=== PATIENT | female | born 1930 | race Caucasian/White ===

== ENCOUNTER 2016-06-16 11:56 | Emergency (ER) | payer MEDICARE ==
[~2016-06-16] VITALS: Ht 154.9 cm; Wt 84.4 kg
[~2016-06-16 11:56] MED LIST: AMIO200T2 PO; CHOL200027 PO; DILT120C2 PO; DILT300C2 PO; DOCU-27 PO; DOXY100C2 PO; DRON400T PO; EDOX60TA PO; FISH1CAP PO; LEVO100T5 PO; LEVO75TA5 PO; LOSA100T6 PO; METO100T11 PO; METO50TA10 PO; POTA20TA12 PO; SOTA80TA PO; TORS20TA2 PO; VIT1CAPS11 PO; WARF2TAB7 PO; WARF5TAB7 PO
--- NOTE | 2016-06-16 12:36 | ED.ADGEN ---
Adult General [facility] HPI Patient is a 85-year-old female presents emergency department complaining of right foot pain. This is been going on for the last 4 days. She reports that she has associated edema. Patient denies any trauma or injury to it. She recalls waking up and feeling pain on her instep. Patient normally takes a daily diuretic but due to the pain of walking on her foot she has not taken it. She reports that her swelling is increased. She denies any other symptom or complaint. Denies any recent illness, fever, chills, nausea, vomiting, chest pain, or dyspnea. Review of Systems Review of Systems Constitutional: Denies fever or chills [] Eyes: Denies change in visual acuity, redness, or eye pain [] HENT: Denies nasal congestion or sore throat [] Respiratory: Denies cough or shortness of breath [] Cardiovascular: No additional information not addressed in HPI [] GI: Denies abdominal pain, nausea, vomiting, bloody stools or diarrhea [] : Denies dysuria or hematuria [] Musculoskeletal: Denies back pain or joint pain [] Integument: Denies rash or skin lesions [] Neurologic: Denies headache, focal weakness or sensory changes [] Endocrine: Denies polyuria or polydipsia [] Allergies Allergies Allergies Coded Allergies Type Severity Reaction Last Updated Verified Penicillins Allergy Intermediate 01/27/16 Yes Sulfa (Sulfonamide Antibiotics) Allergy Intermediate 01/27/16 Yes ciprofloxacin Allergy Intermediate Unknown 01/27/16 Yes Physical Exam Physical Exam Constitutional: Well developed, well nourished, no acute distress, non-toxic appearance. [] HENT: Normocephalic, atraumatic, bilateral external ears normal, oropharynx moist, no oral exudates, nose normal. [] Eyes: PERRLA, EOMI, conjunctiva normal, no discharge. [] Neck: Normal range of motion, no tenderness, supple, no stridor. [] Cardiovascular:Heart rate regular rhythm, no murmur [] Lungs & Thorax: Bilateral breath sounds clear to auscultation [] Abdomen: Bowel sounds normal, soft, no tenderness, no masses, no pulsatile masses. [] Skin: Warm, dry, no erythema, no rash. [] Back: No tenderness, no CVA tenderness. [] Extremities: Mild diffuse tenderness palpation right instep, no cyanosis, no clubbing, ROM intact, bilateral 1+ lower extremity edema. [] Neurologic: Alert and oriented X 3, normal motor function, normal sensory function, no focal deficits noted. [] Psychologic: Affect normal, judgement normal, mood normal. [] Current Patient Data Vital Signs Vital Signs Date Time Temp Pulse Resp B/P Pulse Ox O2 Delivery O2 Flow Rate FiO2 06/16/16 12:05 98.7 97 97 Room Air Lab Results Laboratory Tests Test 06/16/16 13:08 White Blood Count 7.5x10^3/uL (4.0-11.0) Red Blood Count 4.15x10^6/uL (3.50-5.40) Hemoglobin 12.4g/dL (12.0-15.5) Hematocrit 37.6% (36.0-47.0) Mean Corpuscular Volume 91fL (79-100) Mean Corpuscular Hemoglobin 30pg (25-35) Mean Corpuscular Hemoglobin Concent 33g/dL (31-37) Red Cell Distribution Width 14.2% (11.5-14.5) Platelet Count 180x10^3/uL (140-400) Neutrophils (%) (Auto) 70% (31-73) Lymphocytes (%) (Auto) 16% (24-48) L Monocytes (%) (Auto) 13% (0-9) H Eosinophils (%) (Auto) 0% (0-3) Basophils (%) (Auto) 1% (0-3) Neutrophils # (Auto) 5.3x10^3uL (1.8-7.7) Lymphocytes # (Auto) 1.2x10^3/uL (1.0-4.8) Monocytes # (Auto) 1.0x10^3/uL (0.0-1.1) Eosinophils # (Auto) 0.0x10^3/uL (0.0-0.7) Basophils # (Auto) 0.1x10^3/uL (0.0-0.2) Sodium Level 140mmol/L (136-145) Potassium Level 3.3mmol/L (3.5-5.1) L Chloride Level 103mmol/L (98-107) Carbon Dioxide Level 27mmol/L (21-32) Anion Gap 10 (6-14) Blood Urea Nitrogen 11mg/dL (7-20) Creatinine 0.8mg/dL (0.6-1.0) Estimated GFR (Cockcroft-Gault) 68.0 Glucose Level 108mg/dL (70-99) H Calcium Level 8.9mg/dL (8.5-10.1) [id number]-Type Natriuretic Peptide 3602pg/mL (0-449) H EKG EKG [] Radiology/Procedures Radiology/Procedures Right foot radiographs History: Pain and swelling. Comparison: None. Findings: AP, lateral, and oblique views of the right foot. Osseous structures are demineralized. No acute fracture or dislocation is identified. Moderate first MTP degeneration is seen. Moderate plantar calcaneal and Achilles tendon insertional enthesophytes are present. Arterial calcifications are seen. There does appear to be soft tissue swelling of the posterior ankle including superficial to the Achilles tendon insertion. There is also evidence of mild forefoot and midfoot soft tissue swelling. Impression: 1. No acute osseous abnormality identified. 2. Degenerative changes. 3. Areas of soft tissue swelling is described above. DICTATED AND SIGNED BY: MELA BASS MD DATE: 06/16/16 1257 CC: JESSICA GOMEZ MD; DANIELA GROSSMAN MD ~[] Course & Med Decision Making Course & Med Decision Making Pertinent Labs and Imaging studies reviewed. (See chart for details) Overall, the patient looks very well here in emergency department. Her x-rays negative for any acute bony abnormality. Although, does show some swelling. She is labs overall are reassuring. A long discussion with the patient and her daughter. At this point to send her home with supportive care. She is given a use Tylenol as needed for pain. She can try elevation and ice on that for for the next couple of days. If she is not getting satisfactory improvement she will follow-up with her physician or return to the emergency department. [] Final Impression Final Impression Foot pain [] Problems: Dragon Disclaimer Dragon Disclaimer This electronic medical record was generated, in whole or in part, using a voice recognition dictation system. JESSICA GOMEZ MD Jun 16, 2016 12:36
--- NOTE | 2016-06-16 12:55 | RAD ---
Right foot radiographs History: Pain and swelling. Comparison: None. Findings: AP, lateral, and oblique views of the right foot. Osseous structures are demineralized. No acute fracture or dislocation is identified. Moderate first MTP degeneration is seen. Moderate plantar calcaneal and Achilles tendon insertional enthesophytes are present. Arterial calcifications are seen. There does appear to be soft tissue swelling of the posterior ankle including superficial to the Achilles tendon insertion. There is also evidence of mild forefoot and midfoot soft tissue swelling. Impression: 1. No acute osseous abnormality identified. 2. Degenerative changes. 3. Areas of soft tissue swelling is described above.
[2016-06-16 13:21] LABS: BASO # 0.1 x10^3/uL (0.0-0.2); BASO % 1 % (0-3); EOS % 0 % (0-3); HEMATOCRIT 37.6 % (36.0-47.0); HEMOGLOBIN 12.4 g/dL (12.0-15.5); LYMPH # 1.2 x10^3/uL (1.0-4.8); LYMPH % 16 % (24-48); MEAN CORPUSCULAR HEMOGLOBIN 30 pg (25-35); MEAN CORPUSCULAR HGB CONC 33 g/dL (31-37); MEAN CORPUSCULAR VOLUME 91 fL (79-100); MONO % 13 % (0-9); NEUT # 5.3 x10^3uL (1.8-7.7); NEUT % 70 % (31-73); PLATELET COUNT 180 x10^3/uL (140-400); RED BLOOD COUNT 4.15 x10^6/uL (3.50-5.40); RED CELL DISTRIBUTION WIDTH 14.2 % (11.5-14.5); WHITE BLOOD COUNT 7.5 x10^3/uL (4.0-11.0)
[2016-06-16 13:37] LABS: CALCIUM 8.9 mg/dL (8.5-10.1); CREATININE 0.8 mg/dL (0.6-1.0); POTASSIUM 3.3 mmol/L (3.5-5.1)
[2016-06-16 14:00] VITALS: BP 146/71
== END 2016-06-16 14:25 | disposition home or self-care (01) ==
LOC: ER 11:56
DX: M79.671 Pain in right foot (principal); R60.0 Localized edema; Z88.0 Allergy status to penicillin; Z88.2 Allergy status to sulfonamides; Z88.1 Allergy status to other antibiotic agents
CPT/HCPCS: 36415; 73630; 80048; 83880; 85027; 99285-25

== ENCOUNTER → 2016-08-11 | Outpatient (CLI) | payer MEDICARE ==
[~2016-08-11] MED LIST changes: +DOCU-109 PO; -DOCU-27 PO; -SOTA80TA PO; +SOTA80TA48 PO
[2016-08-11 10:43] LABS: ALBUMIN 3.6 g/dL (3.4-5.0); ALBUMIN/GLOBULIN RATIO 0.8 (1.0-1.7); CALCIUM 9.2 mg/dL (8.5-10.1); CREATININE 0.8 mg/dL (0.6-1.0); POTASSIUM 3.8 mmol/L (3.5-5.1); TOTAL BILIRUBIN 0.5 mg/dL (0.2-1.0)
[2016-08-11 10:44] LABS: BASO # 0.1 x10^3/uL (0.0-0.2); BASO % 1 % (0-3); EOS # 0.2 x10^3/uL (0.0-0.7); EOS % 3 % (0-3); HEMOGLOBIN 13.5 g/dL (12.0-15.5); LYMPH % 40 % (24-48); MEAN CORPUSCULAR HEMOGLOBIN 30 pg (25-35); MEAN CORPUSCULAR HGB CONC 34 g/dL (31-37); MEAN CORPUSCULAR VOLUME 89 fL (79-100); MONO # 0.5 x10^3/uL (0.0-1.1); MONO % 11 % (0-9); NEUT # 2.3 x10^3uL (1.8-7.7); NEUT % 45 % (31-73); PLATELET COUNT 232 x10^3/uL (140-400); RED BLOOD COUNT 4.52 x10^6/uL (3.50-5.40); RED CELL DISTRIBUTION WIDTH 14.4 % (11.5-14.5); WHITE BLOOD COUNT 5.1 x10^3/uL (4.0-11.0)
== END | disposition home or self-care (01) ==
LOC: LAB 09:51
PROVIDERS: ATTEND Nurse Practitioner Family
DX: I10 Essential (primary) hypertension (principal); I48.2 Chronic atrial fibrillation; E03.9 Hypothyroidism, unspecified; E78.00 Pure hypercholesterolemia, unspecified
CPT/HCPCS: 36415; 80053; 80061; 84439; 84443; 85027

== ENCOUNTER → 2017-05-26 | Outpatient (CLI) | payer MEDICARE ==
[~2017-05-26] MED LIST changes: +METO-247 PO; -METO100T11 PO; -METO50TA10 PO; +METO50TA29 PO; +WARF-31 PO; -WARF5TAB7 PO
[2017-05-26 12:21] LABS: ALBUMIN 3.6 g/dL (3.4-5.0); ALBUMIN/GLOBULIN RATIO 0.9 (1.0-1.7); CALCIUM 9.4 mg/dL (8.5-10.1); CREATININE 0.9 mg/dL (0.6-1.0); GFR 59.2; POTASSIUM 3.6 mmol/L (3.5-5.1); TOTAL BILIRUBIN 0.6 mg/dL (0.2-1.0); TOTAL PROTEIN 7.8 g/dL (6.4-8.2)
[2017-05-26 15:18] LABS: THYROID STIM HORMONE (TSH) 1.235 uIU/mL (0.358-3.740)
== END | disposition home or self-care (01) ==
LOC: LAB 10:49
PROVIDERS: ATTEND Nurse Practitioner
DX: E78.5 Hyperlipidemia, unspecified (principal); E03.9 Hypothyroidism, unspecified; I10 Essential (primary) hypertension
CPT/HCPCS: 36415; 80053; 80061; 84443

== ENCOUNTER 2018-12-09 12:51 | Emergency (ER) | payer MEDICARE ==
[~2018-12-09] VITALS: Ht 157.5 cm; Wt 81.6 kg
[~2018-12-09 12:51] MED LIST changes: -AMIO200T2 PO; +AMIO200T4 PO; +LOSA100T14 PO; -LOSA100T6 PO; +OCUVITE SOFTGE1 EACH PO; -VIT1CAPS11 PO; -WARF2TAB7 PO; +WARF2TAB96 PO
[2018-12-09 13:01] VITALS: BP 140/83
[2018-12-09] MEDS ORDERED: IV NORMAL SALINE 1,000ML 1,000 ML IV ONE (13:30)
--- NOTE | 2018-12-09 13:48 | PHYS DOC ---
Past History Past Medical History: A-Fib, Hypertension, Hypothyroid Past Surgical History: Cholecystectomy, Hysterectomy Alcohol Use: None Drug Use: None Adult General Chief Complaint Chief Complaint: ABDOMINAL PAIN HPI HPI 88-year-old female presents with lower abdominal pain and generalized weakness. The patient was having some lower abdominal pain yesterday and went to her PCP. She was placed on MiraLAX. She has taken 2 doses so far, but no bowel movement. She has not had a bowel movement in 3 or 4 days. Lower abdominal pain at this time, but is feeling weak and tired. This is more than her baseline. Patient also had urine today that was dark reddish in color. This is also new. She denies fever. Review of Systems Review of Systems Constitutional: Denies fever or chills [] Eyes: Denies change in visual acuity, redness, or eye pain [] HENT: Denies nasal congestion or sore throat [] Respiratory: Denies cough or shortness of breath [] Cardiovascular: No additional information not addressed in HPI [] GI: As patient. Denies abdominal pain, nausea, vomiting, bloody stools or diarrhea [] : hematuria [] Musculoskeletal: Denies back pain or joint pain [] Integument: Denies rash or skin lesions [] Neurologic: Denies headache, focal weakness or sensory changes [] Endocrine: Denies polyuria or polydipsia [] All other systems were reviewed and found to be within normal limits, except as documented in this note. Current Medications Current Medications Current Medications Medications (Trade) Dose Ordered Sig/Layne Start Time Stop Time Status Last Admin Dose Admin Sodium Chloride 1,000 ml @ 1,000 mls/hr 1X ONCE 12/09/18 13:30 12/09/18 14:29 Allergies Allergies Allergies Coded Allergies Type Severity Reaction Last Updated Verified Penicillins Allergy Intermediate 01/27/16 Yes Sulfa (Sulfonamide Antibiotics) Allergy Intermediate 01/27/16 Yes ciprofloxacin Allergy Intermediate Unknown 01/27/16 Yes Physical Exam Physical Exam Constitutional: Well developed, well nourished, no acute distress, non-toxic appearance. [] HENT: Normocephalic, atraumatic, bilateral external ears normal, oropharynx moist, no oral exudates, nose normal. [] Eyes: PERRLA, EOMI, conjunctiva normal, no discharge. [] Neck: Normal range of motion, no tenderness, supple, no stridor. [] Cardiovascular:Heart rate regular rhythm, no murmur [] Lungs & Thorax: Bilateral breath sounds clear to auscultation [] Abdomen: Bowel sounds normal, soft, no tenderness, no masses, no pulsatile masses. [] Skin: Warm, dry, no erythema, no rash. [] Back: No tenderness, no CVA tenderness. [] Extremities: No tenderness, no cyanosis, no clubbing, ROM intact, no edema. [] Neurologic: Alert and oriented X 3, normal motor function, normal sensory function, no focal deficits noted. [] Psychologic: Affect normal, judgement normal, mood normal. [] Current Patient Data Vital Signs Vital Signs Date Time Temp Pulse Resp B/P (MAP) Pulse Ox O2 Delivery O2 Flow Rate FiO2 12/09/18 13:01 98.0 88 22 92 Room Air EKG EKG [] Radiology/Procedures Radiology/Procedures [] Impressions: Examination: ABDOMEN LTD History: Elevated liver enzymes Comparison/Correlation: None Findings: Limited right upper quadrant ultrasound exam was performed. Exam is somewhat limited by bowel gas. Hepatic echotexture is within normal limits. Common bile duct is of normal diameter. Cholecystectomy is evident. Right kidney is unremarkable. Portal venous flow and spectral waveform or unremarkable. No right upper quadrant ascites. Proximal pancreas is normal. Distal pancreas obscured by bowel gas. Inferior vena cava is unremarkable. Impression: No biliary dilatation. Cholecystectomy. Unremarkable exam. Electronically signed by: Ayo Contreras MD (12/09/2018 3:23 PM) [facility] DICTATED AND SIGNED BY: AYO CONTRERAS MD DATE: 12/09/18 1523 CC: ROXY ACEVEDO DO; DANIELA GROSSMAN MD ~ Course & Med Decision Making Course & Med Decision Making Pertinent Labs and Imaging studies reviewed. (See chart for details) The patient's labs are significant for an elevated liver enzymes. Review of her chart shows she has not had these previously. I ordered a direct bilirubin and lipase in addition to right upper quadrant ultrasound. The direct bilirubin was elevated at 4.4 and lipase is normal. Her right upper quadrant ultrasound does not show obstruction. See official report for details. The patient is pain-free at this time. I have ordered an acute hepatitis panel which is pending. I believe she is stable for discharge and these results will be available for her primary care physician next week. I advised her that if any thing in her condition worsens or she develops a fever, she should return to the emergency room. The patient and family are in agreement with this plan. She is stable for discharge at this time. [] Dragon Disclaimer Dragon Disclaimer This electronic medical record was generated, in whole or in part, using a voice recognition dictation system. Departure Departure: Impression: Primary Impression: Elevated liver enzymes Disposition: HOME, SELF-CARE Condition: STABLE Referrals: DANIELA GROSSMAN MD (PCP) Patient Instructions: Liver Panel ORXY ACEVEDO DO Dec 09, 2018 13:47
--- NOTE | 2018-12-09 14:02 | RAD ---
Examination: KUB History: Constipation Comparison/Correlation: 05/01/2010 two-view chest exam Findings: Frontal views of the abdomen were obtained. Pacemaker lead overlies the right ventricle. Interstitial thickening in the lung bases noted. Right pleural effusion and/or thickening noted. Right upper quadrant surgical clips are present. Celiac calcification of the left upper quadrant vasculature is noted. Bowel gas pattern is unremarkable. No obstruction. Osteopenia noted. Impression: No obstruction. Small quantity of stool and the colon. Bibasilar interstitial thickening and/or right basilar pleural effusion. Findings are new since the previous 2 view chest x-ray exam of 05/11/2010. Consider follow-up two-view chest x-ray exam for more complete assessment. Electronically signed by: Ayo Narvaez MD (12/09/2018 1:59 PM) [facility]
[2018-12-09 14:04] LABS: COLOR,URINE AMBER
[2018-12-09 14:05] LABS: BACTERIA,URINE FEW /HPF (0-FEW); BILIRUBIN,URINE LARGE (NEG); CLARITY,URINE CLEAR; GLUCOSE,URINE NEG (NEG); NITRITE,URINE NEG (NEG); SQUAMOUS EPITHELIAL CELL,UR MOD /LPF; UROBILINOGEN,URINE 4 mg/dL (0.2 mg/dL)
[2018-12-09 14:18] LABS: BASO % 1 % (0-3); EOS % 0 % (0-3); HEMATOCRIT 38.4 % (36.0-47.0); HEMOGLOBIN 12.9 g/dL (12.0-15.5); LYMPH # 1.1 x10^3/uL (1.0-4.8); LYMPH % 12 % (24-48); MEAN CORPUSCULAR HEMOGLOBIN 31 pg (25-35); MEAN CORPUSCULAR HGB CONC 34 g/dL (31-37); MEAN CORPUSCULAR VOLUME 92 fL (79-100); MONO # 0.9 x10^3/uL (0.0-1.1); MONO % 10 % (0-9); NEUT # 7.2 x10^3uL (1.8-7.7); NEUT % 78 % (31-73); PLATELET COUNT 204 x10^3/uL (140-400); RED BLOOD COUNT 4.18 x10^6/uL (3.50-5.40); RED CELL DISTRIBUTION WIDTH 14.6 % (11.5-14.5); WHITE BLOOD COUNT 9.3 x10^3/uL (4.0-11.0)
[2018-12-09 14:31] LABS: ALBUMIN 3.4 g/dL (3.4-5.0); ALBUMIN/GLOBULIN RATIO 0.8 (1.0-1.7); CALCIUM 9.1 mg/dL (8.5-10.1); CREATININE 0.6 mg/dL (0.6-1.0); GFR 94.1; POTASSIUM 3.9 mmol/L (3.5-5.1); TOTAL BILIRUBIN 6.6 mg/dL (0.2-1.0)
[2018-12-09 14:32] LABS: TOTAL PROTEIN 7.8 g/dL (6.4-8.2)
--- NOTE | 2018-12-09 15:26 | RAD ---
Examination: ABDOMEN LTD History: Elevated liver enzymes Comparison/Correlation: None Findings: Limited right upper quadrant ultrasound exam was performed. Exam is somewhat limited by bowel gas. Hepatic echotexture is within normal limits. Common bile duct is of normal diameter. Cholecystectomy is evident. Right kidney is unremarkable. Portal venous flow and spectral waveform or unremarkable. No right upper quadrant ascites. Proximal pancreas is normal. Distal pancreas obscured by bowel gas. Inferior vena cava is unremarkable. Impression: No biliary dilatation. Cholecystectomy. Unremarkable exam. Electronically signed by: Ayo Narvaez MD (12/09/2018 3:23 PM) [facility]
== END 2018-12-09 17:16 | disposition home or self-care (01) ==
LOC: ER 12:51
DX: R74.8 Abnormal levels of other serum enzymes (principal); I48.91 Unspecified atrial fibrillation; I10 Essential (primary) hypertension; E03.9 Hypothyroidism, unspecified; Z90.49 Acquired absence of other specified parts of digestive tract; Z90.710 Acquired absence of both cervix and uterus; Z88.0 Allergy status to penicillin; Z88.2 Allergy status to sulfonamides; Z88.1 Allergy status to other antibiotic agents
CPT/HCPCS: 36415; 74018; 76705; 80053; 81001; 82248; 83690; 85025; 86705; 86709; 86803; 87340; 99285-25; J7030

== ENCOUNTER → 2018-12-14 | Outpatient (CLI) | payer MEDICARE ==
[2018-12-09 13:01] VITALS: BP 140/83
--- NOTE | 2018-12-14 17:57 | RAD ---
CT scan of the abdomen and pelvis without contrast 12/14/2018 CLINICAL HISTORY: Elevated bilirubin. TECHNIQUE: Unenhanced, contiguous, 3 mm axial sections were obtained through the abdomen and pelvis. One or more of the following individualized dose reduction techniques were utilized for this study: 1. Automated exposure control. 2. Adjustment of the mA and/or kV according to patient size. 3. Use of iterative reconstruction technique. FINDINGS: Comparison made to patient's ultrasound of the right upper quadrant abdomen dated 12/09/2018. Images through the lung bases demonstrate mild to moderate cardiomegaly. There are small bilateral pleural effusions, right greater than left. Right lower lobe atelectasis and/or infiltrate is seen. The spleen, pancreas, adrenal glands and kidneys are within normal limits. Mild to moderate intrahepatic biliary ductal dilatation is seen. The common hepatic and common bile duct are dilated measuring 1.3 cm in diameter. A 7 mm calcific density is seen in the expected location of the distal common bile duct in the region of the ampulla which is felt to most likely represent choledocholithiasis. No focal abnormality of the liver is seen. Atherosclerotic calcification of thje abdominal aorta and its branches is noted. The abdominal aorta tapers normally. Surgical clips are seen within the gallbladder fossa consistent with a cholecystectomy. No free fluid or free air is seen within the abdomen. There is no evidence of bowel obstruction. Images through the pelvis demonstrate the urinary bladder distended with urine. Multiple diverticula are seen involving the sigmoid colon. No inflammatory changes are seen adjacent fat. Calcifications are seen within the pelvis consistent with phleboliths. No free fluid is seen. Mild S-shaped curvature of the thoracolumbar spine is noted. Degenerative changes are seen involving the lower thoracic and throughout the lumbar spine along with both hips. IMPRESSION: 7 mm calcific density suspicious for choledocholithiasis is seen in the region of the distal common bile duct which appears to be causing mild to moderate intra and extrahepatic biliary ductal dilatation. Electronically signed by: Ishan Velasco MD (12/14/2018 5:54 PM) [id number]
== END | disposition home or self-care (01) ==
LOC: CT 10:39
PROVIDERS: ATTEND Family Medicine
DX: R17 Unspecified jaundice (principal); I70.0 Atherosclerosis of aorta; I51.7 Cardiomegaly; J98.11 Atelectasis; K83.8 Other specified diseases of biliary tract
CPT/HCPCS: 74176